=== PATIENT | female | born 1975 | race Caucasian/White ===

== ENCOUNTER 2020-08-13 10:07 | Emergency (ER) | payer OTHER ==
[2020-08-13 10:15] VITALS: BP 111/67; PULSE 83; TEMP 98.4; BMI 22.8
== END 2020-08-13 11:05 | disposition home or self-care (01) ==
LOC: JER 10:07
PROC: 0U9L0ZZ Drainage of Vestibular Gland, Open Approach (ICD-10-PCS; principal; 2020-08-13)
DX: N75.1 Abscess of Bartholin's gland (principal)
CPT/HCPCS: 87070; 87186; 87205; 99283-25